=== PATIENT | female | born 1965 | race American Indian/Alaskan Native ===

== ENCOUNTER 2017-01-07 04:54 | Emergency (ER) | payer OTHER ==
[2017-01-07] MEDS ORDERED: DECADRON IM ONE (05:26)
[2017-01-07] MEDS ORDERED: BICILLIN L-A IM ONE (05:27)
[2017-01-07] MEDS ORDERED: MOTRIN PO ONE (05:28)
--- NOTE | 2017-01-07 05:43 | Emergency Department Report ---
ED ENT HPI - General Chief complaint: Sore Throat Stated complaint: SORE THROAT Time Seen by Provider: 01/07/17 05:07 Source: patient Mode of arrival: Ambulatory Limitations: No Limitations - History of Present Illness Initial comments: 51-year-old female past medical history hypertension presents with complaint of 3-5 days of sore throat with mild drooling. Patient denies any shortness of breath no nausea or vomiting states she has also had some body aches. Denies any sick contacts at home. No audible stridor or wheezing on clinical exam patient speaking in full sentences accompanied by . No Rash, earache or nasal drainage reported by patient. MD complaint: sore throat Onset/Timin -: days(s) Location: throat Severity: moderate Severity scale (0 -10): 6 Consistency: constant Improves with: none - Related Data Previous Rx's Medication Instructions Recorded Last Taken Type Benzocaine/Menthol [Cepacol Sore 1 each MM Q4H PRN #18 lozenge 01/07/17 Unknown Rx Throat Lozenge] Ibuprofen [Motrin] 600 mg PO Q8H PRN #25 tablet 01/07/17 Unknown Rx Allergies Allergy/AdvReac Type Severity Reaction Status Date / Time bee venom (honey bee) Allergy Hives Verified 01/07/17 05:03 ED Dental HPI - General Chief complaint: Sore Throat Stated complaint: SORE THROAT Time Seen by Provider: 01/07/17 05:07 Source: patient Mode of arrival: Ambulatory Limitations: No Limitations - Related Data Previous Rx's Medication Instructions Recorded Last Taken Type Benzocaine/Menthol [Cepacol Sore 1 each MM Q4H PRN #18 lozenge 01/07/17 Unknown Rx Throat Lozenge] Ibuprofen [Motrin] 600 mg PO Q8H PRN #25 tablet 01/07/17 Unknown Rx Allergies Allergy/AdvReac Type Severity Reaction Status Date / Time bee venom (honey bee) Allergy Hives Verified 01/07/17 05:03 ED Review of Systems ROS: Stated complaint: SORE THROAT Other details as noted in HPI ED Past Medical Hx - Past Medical History Previous Medical History?: No - Surgical History Past Surgical History?: Yes Additional Surgical History: tubal ligation - Medications Home Medications: Home Medications Medication Instructions Recorded Confirmed Last Taken Type Benzocaine/Menthol [Cepacol Sore 1 each MM Q4H PRN #18 lozenge 01/07/17 Unknown Rx Throat Lozenge] Ibuprofen [Motrin] 600 mg PO Q8H PRN #25 tablet 01/07/17 Unknown Rx ED Physical Exam - General Limitations: No Limitations General appearance: alert, in no apparent distress - Head Head exam: Present: atraumatic, normocephalic - Eye Eye exam: Present: normal appearance, PERRL, EOMI - ENT ENT exam: Present: mucous membranes moist - Expanded ENT Exam Expanded Mouth exam: Present: normal external inspection (no drooling trismus or muffled voice no induration below tongue no evidence of oral cavity infection) Throat exam: Positive: normal inspection, tonsillar erythema (very minor tonsillar erythema) - Neck Neck exam: Present: normal inspection, full ROM - Respiratory Respiratory exam: Present: normal lung sounds bilaterally. Absent: respiratory distress - Cardiovascular Cardiovascular Exam: Present: regular rate, normal rhythm. Absent: systolic murmur, diastolic murmur, rubs, gallop - GI/Abdominal GI/Abdominal exam: Present: soft, normal bowel sounds - Extremities Exam Extremities exam: Present: normal inspection - Back Exam Back exam: Present: normal inspection - Neurological Exam Neurological exam: Present: alert, oriented X3 - Psychiatric Psychiatric exam: Present: normal affect, normal mood - Skin Skin exam: Present: warm, dry, intact, normal color. Absent: rash ED Course Vital Signs 01/07/17 01/07/17 01/07/17 05:01 05:47 06:47 Temperature 98.5 F Pulse Rate 109 H Respiratory 20 20 20 Rate Blood Pressure 142/94 Blood Pressure [Right] O2 Sat by Pulse 99 Oximetry 01/07/17 06:52 Temperature 98.5 F Pulse Rate 89 Respiratory 20 Rate Blood Pressure Blood Pressure 132/88 [Right] O2 Sat by Pulse 99 Oximetry ED Medical Decision Making - Medical Decision Making A/P: Pharyngitis 1-lozenges and Motrin when necessary 2-follow-up with primary care doctor 3-return to the ED for any fever or chills worsened in shortness of breath drooling trismus inability to tolerate by mouth Critical care attestation.: If time is entered above; I have spent that time in minutes in the direct care of this critically ill patient, excluding procedure time. ED Disposition Clinical Impression: Pharyngitis Qualifiers: Pharyngitis/tonsillitis etiology: unspecified etiology Qualified Code(s): J02.9 - Acute pharyngitis, unspecified Disposition: DISCHARGED TO HOME OR SELFCARE Is pt being admited?: No Does the pt Need Aspirin: No Condition: Stable Instructions: Pharyngitis (ED) Prescriptions: Benzocaine/Menthol [Cepacol Sore Throat Lozenge] 1 each MM Q4H PRN #18 lozenge PRN Reason: Sore Throat Ibuprofen [Motrin] 600 mg PO Q8H PRN #25 tablet PRN Reason: Pain Referrals: PRIMARY CARE, [Primary Care Provider] - 3-5 Days ERNST WONG MD [Staff Physician] - 3-5 Days Forms: Accompanied Note, Work/School Release Form(ED)
[2017-01-07 06:53] VITALS: BP 132/88
--- NOTE | 2017-01-07 07:34 | XRay Report ---
AP AND LATERAL SOFT TISSUES OF THE NECK: History: Throat pain. The contour of the upper airway appears within normal limits. The epiglottis is not enlarged. No prevertebral soft tissue swelling is apparent. No mass density or foreign body is evident. IMPRESSION: Unremarkable soft tissue neck exam. If further evaluation is needed, CT neck with contrast is recommended.
== END 2017-01-07 07:47 | disposition home or self-care (01) ==
LOC: ED 04:54
DX: J02.9 Acute pharyngitis, unspecified (principal); Z98.51 Tubal ligation status
CPT/HCPCS: 70360; 87116; 87430; 96372; 99283; J0561; J1100